=== PATIENT | male | born 1945 | race Caucasian/White ===

== ENCOUNTER 2023-08-17 07:06 | Inpatient (IN) ==
[2023-08-07 11:00] LABS: Basophils % (Auto) 1.2 % (0.0-2.0); Eosinophils # (Auto) 0.17 K/mcL (0.00-0.70); Hematocrit 38.8 % (40.1-51.0); Hemoglobin 12.9 g/dL (13.7-17.5); Lymphocytes # (Auto) 1.83 K/mcL (1.50-4.80); Mean Cell Volume 93.9 fL (80.0-100.0); Mean Corpuscular HGB Conc 33.2 g/dL (31.0-36.0); Mean Platelet Volume 9.5 fL (8.8-12.5); Monocytes % (Auto) 10.8 % (1.0-12.0); Neutrophils % (Auto) 63.8 % (38.0-78.0); Platelet Count 271 K/mcL (140-440); RBC 4.13 M/mcL (4.63-6.08); Red Cell Distribution Width 13.2 % (11.5-14.5); WBC 8.3 K/mcL (4.5-11.0)
[2023-08-07 11:07] LABS: Appearance,Urine HAZY (Clear); Bilirubin,Urine Negative (Negative); Color,Urine YELLOW; Culture Indicated,Urine No; Glucose,Urine (UA) Negative (Negative); Ketones,Urine Negative (Negative); Leukocyte Esterase,Urine Negative /uL (Negative); Mucus,Urine FEW /hpf; Nitrate,Urine Negative (Negative); Protein,Urine 30 mg/dL (Negative); Specific Gravity,Urine 1.017 (1.000-1.035); Urine Blood Negative (Negative); Urine RBC 0 /hpf (0-3); Urine Squamous Epithelial Cell < 1 /hpf (0-4); Urine WBC 1 /hpf (0-4); Urobilinogen,Urine Negative
[2023-08-07 11:22] LABS: Estimated Average Glucose(eAG) 146 mg/dL; Hemoglobin A1C 6.7 % Hgb (4.0-6.0)
[2023-08-07 11:32] LABS: Partial Thromboplastin Time 30.3 sec (20.0-37.0); Prothrombin Time 13.9 sec (11.9-14.5)
[2023-08-07 16:11] LABS: Blood Urea Nitrogen 24 mg/dL (8-23); Calcium 9.5 mg/dL (8.6-10.4); Carbon Dioxide 26 mmol/L (22-30); Chloride 103 mmol/L (96-108); Glomerular Filtration Rate 57; Glucose 125 mg/dL (70-105)
[~2023-08-17 07:06] MED LIST: ACETAMINOPHEN 500 MG TABLET PO SCH; CELECOXIB 200 MG CAPSULE PO SCH; PREGABALIN 75 MG CAPSULE PO SCH; ceFAZolin 2 GM in DEXTROSE 5% IN WATER 50 ML IV SCH; oxyCODONE 10 MG TAB.ER.12H PO SCH
[2023-08-17] MEDS ORDERED: HYDROmorphone 1 MG/ML SYRINGE IV PRN ×2 (11:37→14:22)
[2023-08-17] MEDS ORDERED: KETOROLAC 15 MG/ML VIAL IV PRN (11:37)
[2023-08-17] MEDS ORDERED: ACETAMINOPHEN 325 MG TABLET PO PRN ×2 (11:37→14:22)
[2023-08-17] MEDS ORDERED: LORAZEPAM 2 MG PO PRN (11:39)
[2023-08-17] MEDS ORDERED: PROPOFOL 200 MG/20 ML VIAL IV ONE (11:45)
[2023-08-17] MEDS ORDERED: fentaNYL 100 MCG/2 ML VIAL IV ONE (11:45)
[2023-08-17] MEDS ORDERED: MELATONIN 3 MG TABLET PO PRN (11:49)
[2023-08-17] MEDS ORDERED: ONDANSETRON 4 MG/2 ML VIAL IV ONE (11:50)
[2023-08-17] MEDS ORDERED: TRANEXAMIC ACID 1,000 MG/10 ML VIAL IV ONE (12:00)
[2023-08-17] MEDS ORDERED: LIDOCAINE 2% PF 5 ML VIAL IJ ONE (12:24)
[2023-08-17] MEDS ORDERED: PHENYLephrine 1 MG/10 ML SYRINGE (ANEST) IV ONE (12:24)
[2023-08-17] MEDS ORDERED: ONDANSETRON 4 MG/2 ML VIAL IV PRN (12:32)
[2023-08-17] MEDS ORDERED: IPRATROPIUM/ALBUTEROL 3 ML AMPUL.NEB NEB PRN (12:32)
[2023-08-17] MEDS ORDERED: fentaNYL 100 MCG/2 ML VIAL IV PRN (12:32)
[2023-08-17] MEDS ORDERED: LACTATED RINGERS 1,000 ML IV SCH (12:45)
[2023-08-17] MEDS ORDERED: oxyCODONE/APAP 5/325MG TABLET PO PRN (14:22)
[2023-08-17] MEDS ORDERED: ROCURONIUM 10 MG/ML ML IV ONE (14:30)
[2023-08-17] MEDS ORDERED: SUGAMMADEX SODIUM 200 MG/2 ML VIAL IV ONE (14:30)
[2023-08-17] MEDS: oxyCODONE/APAP 5/325MG TABLET PO PRN ×2 (15:57→20:04)
[2023-08-17] MEDS: metFORMIN 500 MG TAB.XL.24H PO SCH (20:03)
[2023-08-17] MEDS: MULTIVIT,THER IRON,CA,FA & MIN 1 TABLET PO SCH (20:03)
[2023-08-17] MEDS: LACTOBACILLUS 1 CAPSULE PO SCH (20:04)
[2023-08-17] MEDS ORDERED: LOSARTAN 50 MG TABLET PO SCH (21:00)
[2023-08-18] MEDS: MULTIVIT,THER IRON,CA,FA & MIN 1 TABLET PO SCH (08:35)
[2023-08-18] MEDS: metFORMIN 500 MG TAB.XL.24H PO SCH (08:35)
[2023-08-18] MEDS: LACTOBACILLUS 1 CAPSULE PO SCH (08:35)
[2023-08-18] MEDS ORDERED: MIRABEGRON 50 MG PO SCH (09:00)
[2023-08-18] MEDS ORDERED: VITAMIN D PO SCH (09:00)
[2023-08-18] MEDS ORDERED: [UNRECOGNIZED DRUG - OTHER] PO SCH (09:00)
[2023-08-18] MEDS ORDERED: FISH OIL 1,000 MG CAPSULE PO SCH (09:00)
[2023-08-18] MEDS ORDERED: CBD PO SCH (09:00)
[2023-08-18] MEDS ORDERED: [UNRECOGNIZED DRUG - OTHER] PO SCH (09:00)
[2023-08-18] MEDS ORDERED: GLUCOSAM CHON COLLAG HYALUR AC PO SCH (09:00)
[2023-08-18] MEDS ORDERED: CHLORTHALIDONE 25 MG TABLET PO SCH (09:00)
[2023-08-18] MEDS ORDERED: AMINO AC VIT E ZN PROSTATE HB9 PO SCH (09:00)
[2023-08-18] MEDS ORDERED: N ACETYL CYSTEINE PO SCH (09:00)
[2023-08-18 12:47] VITALS: TEMP 97.3; O2SAT 95
== END 2023-08-18 12:25 | disposition home or self-care (01) | DRG 483 ==
LOC: MEDSUR 07:06 → EDSTATUS 12:45
PROVIDERS: ADMIT Orthopaedic Surgery; ATTEND Orthopaedic Surgery